=== PATIENT | female | born 1990 | race Caucasian/White ===

== ENCOUNTER 2017-10-08 18:34 | Emergency (ER) | payer MEDICAID ==
[~2017-10-08] VITALS: Ht 167.6 cm; Wt 56.7 kg
[~2017-10-08 18:34] MED LIST: HYDR-4309 PO; PREN-85 PO
--- NOTE | 2017-10-08 18:44 | ER Report ---
History and Physical Time Seen By MD: 18:43 Hx. of Stated Complaint: pt presents with hx of fall hitting head on door hinge, sustaining lac to forehead. Pt has hx ataxia. No loc HPI/ROS CHIEF COMPLAINT: Fall with laceration HISTORY OF PRESENT ILLNESS: 27-year-old female patient presents to emergency room with complaint of laceration to her forehead. Patient states that she was turning when she lost her balance and fell. She states when she fell she hit her head on a door hinge. Patient states she did not lose consciousness. Patient denies any dizziness, nausea, vomiting. Patient states that she does have headache. She states the pain is right around the lacerations as well as a little bit further back. Patient states that she does have an ataxia which resulted in her falling. REVIEW OF SYSTEMS: Respiratory: No cough, no dyspnea. Cardiovascular: No chest pain, no palpitations. Gastrointestinal: No vomiting, no abdominal pain. Musculoskeletal: No back pain. Allergies: Coded Allergies: No Known Drug Allergies (Verified , 10/08/17) Home Meds Discontinued Scripts Hydrocodone Bit/Acetaminophen (NORCO 5-325 TABLET) 1 Each Tablet, 1 EACH PO Q4- 6H Y for PAIN, #20 TAB Prov:MIRTHA HERNANDEZ DETASSELER 04/20/14 Past Medical/Surgical History Patient has a past medical history of ataxia. Patient denies any pertinent surgical history. Reviewed Nurses Notes: Yes Hx Smoking: No Smoking Status: Never Smoker Hx Substance Use Disorder: No Hx Alcohol Use: No Constitutional Vital Sign - Last 24 Hours 10/08/17 10/08/17 10/08/17 10/08/17 18:37 18:39 18:49 19:04 Temp 98.1 Pulse 79 87 86 Resp 20 B/P (MAP) 111/70 (84) 111/70 Pulse Ox 94 96 93 O2 Delivery Room Air 10/08/17 10/08/17 10/08/17 10/08/17 19:19 19:24 19:49 19:54 Pulse 83 93 75 B/P (MAP) 100/67 (78) Pulse Ox 95 88 94 10/08/17 10/08/17 20:09 20:24 Pulse ? Physical Exam General Appearance: The patient is alert, has no immediate need for airway protection and no current signs of toxicity. ENT: Tympanic membranes are pearly-groves, auditory canals are patent, mucous membranes are moist. Respiratory: Chest is non tender, lungs are clear to auscultation. Cardiac: regular rate and rhythm Gastrointestinal: Abdomen is soft and non tender, no masses, bowel sounds normal. Musculoskeletal: Neck: Neck is supple and non tender. Extremities have full range of motion and are non tender. Skin: No rashes or lesions. Patient has a laceration just above the right eyebrow which measures 1.5 cm in length. Patient has a second laceration on the forehead which measures 0.5 cm in length. Both appear to go into the subcutaneous tissue. Neuro: Patient is alert and oriented 4, cranial nerves II through XII grossly intact. Patient was able to complete serial sevens with a few minor mathematical difficulties. 3 word recall was 3/3 at zero minutes and 3/3 at 5 minutes. DIFFERENTIAL DIAGNOSIS: After history and physical exam differential diagnosis was considered for laceration, concussion, intracranial bleed, skull fracture. Medical Decision Making ED Course/Re-evaluation ED Course Patient was managed in exam room, history and physical were obtained. Differential diagnoses were considered. On examination patient is alert and oriented 4, cranial nerves II through XII grossly intact. Patient has a 1.5 cm laceration above her right eyebrow, 0.5 cm laceration to the forehead. Both appear to go into the subcutaneous tissue. With patient not having any loss of consciousness, no dizziness, and be alert and oriented I don't believe we need to do a CT scan of the head. I discussed this with patient and her mother both verbalize agreement. The wounds were anesthetized, cleaned and repaired described below. Following the repair I did reevaluate the patient. That time she is feeling very tired, having hard time keeping her eyes open. She denies feeling dizziness, denies any nausea or vomiting. She states her headache is completely gone. She states she would like to go home and rest. We will go ahead and give him strict instructions to return if she develops any uncontrollable vomiting, increased irritability, difficulty to arouse. Patient and her mother verbalized understanding and agreement with plan. Procedure: Laceration repair. Verbal consent was obtained from the patient. The 1.5 and 0.5 cm lacerations on the right forehead were anesthetized in the usual fashion. The wounds were scrubbed, draped and explored to its base with a gloved finger. There were no deep structures involved. No tendon injury was identified. The wound was repaired with 4 simple interrupted sutures and 3 simple interrupted sutures using 6-0 Prolene material. The wound repair was simple. The procedure was performed by myself. Decision to Disposition Date: Oct 08, 2017 Decision to Disposition Time: 19:44 Depart Departure Latest Vital Signs Vital Signs Date Time Temp Pulse Resp B/P (MAP) Pulse Ox O2 Delivery O2 Flow Rate FiO2 10/08/17 20:24 ??? 10/08/17 19:54 94 10/08/17 19:49 100/67 (78) 10/08/17 18:39 98.1 20 Room Air Impression: Primary Impression: Concussion Additional Impression: Laceration Condition: Improved New Scripts No Active Prescriptions or Reported Meds Patient Instructions: Concussion (ED) Additional Instructions: Get plenty of rest. Limit activity by pain. Limit TV and computer time. Monitor for confusion, increased irritability, uncontrollable vomiting, worsening headache or difficulty to arouse. Return to the ER if those are to occur. Follow up with your primary care provider in the next week. Keep wound dry for 48 hours. Follow up with your primary care provider in the next 5-7 days to have sutures removed. Monitor for signs of infection; redness, swelling, heat, discharge, increasing pain or red streaking. Take Tylenol or Ibuprofen as needed for pain. Return to the ER with any concerns. Problem Qualifiers Primary Impression: Concussion Encounter type: initial encounter Loss of consciousness presence/duration: without LOC Qualified Codes: S06.0X0A - Concussion without loss of consciousness, initial encounter MIRTHA HERNANDEZ Oct 08, 2017 18:44
[2017-10-08 19:49] VITALS: BP 100/67
== END 2017-10-08 20:13 | disposition home or self-care (01) ==
LOC: ER 19:16
DX: S06.0X0A Concussion without loss of consciousness, initial encounter (principal); S01.81XA Laceration without foreign body of other part of head, initial encounter; W18.30XA Fall on same level, unspecified, initial encounter
CPT/HCPCS: 99281